=== PATIENT | male | born 1970 | race African-American/Black ===

== ENCOUNTER 2024-12-18 14:32 | Emergency (ER) | payer OTHER ==
[2024-12-18] MEDS: Lisinopril 10 MG Tab PO ONE ×2 (15:42)
== END 2024-12-18 15:50 | disposition home or self-care (01) ==
LOC: FB.ED 14:32
DX: S06.0X0A Concussion without loss of consciousness, initial encounter (principal); I10 Essential (primary) hypertension; Z88.0 Allergy status to penicillin; Z79.899 Other long term (current) drug therapy; V49.49XA Driver injured in collision with other motor vehicles in traffic accident, initial encounter; Y93.89 Activity, other specified
CPT/HCPCS: 70450; 99284; A9270